=== PATIENT | female | born 1965 ===

== ENCOUNTER 2016-11-06 06:10 | Inpatient (IN) | payer OTHER ==
[2016-11-06 06:33] VITALS: BMI 37.6
[2016-11-06] MEDS ORDERED: Rocuronium 10 mg/ml (5 ml) ONE (07:29)
[2016-11-06] MEDS ORDERED: Succinylcholine 200 mg/10 ml Inj IV ONE (07:29)
[2016-11-06] MEDS ORDERED: Propofol 10 mg/ml Inj (20 ML) ONE (07:29)
[2016-11-06] MEDS ORDERED: Lidocaine 4% (Laryng-O-Jet) Kit MM ONE (07:29)
[2016-11-06] MEDS ORDERED: Midazolam 2 MG/2 ML VIAL ONE (07:29)
--- NOTE | 2016-11-06 07:30 | CP.SDSHP ---
Same Day Surgery H & P - History Proposed Procedure: Modified Radical Mastectomy (Right) Pre-Op Diagnosis: Infiltrating Ductal Ca - Previous Medical/Surgical History Pain: 0. No Pain Comments: Denies any Prior Medical or Surgical history Previous Surgical History: none - Allergies Allergies: Allergies No Known Allergies Allergy (Verified 09/07/16 12:09) - Physical Exam General Appearance: well nourished Vital Signs: Vital Signs 11/06/16 11/06/16 06:26 06:36 Temperature 97.9 F Pulse Rate 62 62 Respiratory 97 H Rate Blood Pressure 116/60 Mental Status: Alert & Oriented x3 Neuro: WNL Heart: WNL Lungs: WNL GI: WNL - {Optional Preform as Required} Breast: Other (R breast mass) Other Pertinent Findings: Core needle Bx with Infiltrating Ductal CA - Impression Impression: 51 yo F otherwise healthy with 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 Evaluated Today:Candidate for Anesthesia & Procedure: Yes - Date & Time Date: 11/06/16 Time: 07:30 Short Stay Discharge - Short Stay Discharge Admitting Diagnosis/Reason for Visit: C50.9 Disposition: HOME/ ROUTINE
[2016-11-06] MEDS ORDERED: Lactated Ringer's 1,000 ML IV ONE (07:45)
[2016-11-06] MEDS ORDERED: Dexamethasone 4 mg/1 ml ONE (08:07)
[2016-11-06] MEDS ORDERED: Neostigmine Methylsulfate 3mg/3ml Syringe IV ONE (08:45)
[2016-11-06] MEDS ORDERED: HYDROmorphone 0.5 mg/0.5 ml ISec IVP PRN (09:14)
--- NOTE | 2016-11-06 09:26 | PCM.SURG1 ---
Surgeon's Initial Post Op Note - Surgeon's Notes Surgeon: Dr. Barnett Parent Trainer: Dr. Butterfield, PGY2 Type of Anesthesia: General Endo Pre-Operative Diagnosis: Infiltrating Ductal Ca, Right Breast Operative Findings: same Post-Operative Diagnosis: same Operation Performed: Modified Radical Mastectomy, Right Breast Specimen/Specimens Removed: Right Breast Estimated Blood Loss: EBL {In ML}: 30 Blood Products Given: N/A Drains Used: Adithya Post-Op Condition: Good Date of Surgery/Procedure: 11/06/16 Time of Surgery/Procedure: 09:25
[2016-11-06] MEDS: HYDROmorphone 0.5 mg/0.5 ml ISec IVP PRN ×2 (09:55→10:10)
[2016-11-06] MEDS: Oxycodone/Acetaminophen 5/325 mg Tab PO PRN (14:49)
[2016-11-06] MEDS ORDERED: Lactated Ringer's 1,000 ML IV SCH (19:30)
[2016-11-07 01:10] VITALS: RESP 18
[2016-11-07] MEDS: Oxycodone/Acetaminophen 5/325 mg Tab PO PRN ×2 (03:07→14:41)
--- NOTE | 2016-11-07 07:41 | CP.PCM.DIS ---
Provider - Provider Date of Admission: 11/06/16 09:15 Attending physician: Tressa Barnett MD Primary care physician: Maxwell Franco MD Time Spent in preparation of Discharge (in minutes): 20 Diagnosis - Discharge Diagnosis (1) Breast cancer Status: Acute Hospital Course - Hospital Course Hospital Course: 51 yo F admitted to the hospital after undergoing Right Modified radical mastectomy for infiltrative ductal CA. Pt did well post-operatively. A CT chest/abdomen/pelvis and Bone scan were completed during her stay. On POD #1 Pt. was tolerating regular diet, ambulating, and pain was well controlled on PO medications. Pt was stable for discharge home with follow-up in office. Discharge Exam - Head Exam Head Exam: ATRAUMATIC, NORMAL INSPECTION, NORMOCEPHALIC - Eye Exam Eye Exam: EOMI, Normal appearance - Respiratory Exam Respiratory Exam: NORMAL BREATHING PATTERN. absent: Respiratory Distress - Cardiovascular Exam Cardiovascular Exam: REGULAR RHYTHM - GI/Abdominal Exam GI & Abdominal Exam: Soft. absent: Distended, Tenderness - Neurological Exam Neurological exam: Alert, Oriented x3 - Psychiatric Exam Psychiatric exam: Normal Affect, Normal Mood - Skin Skin Exam: Dry, Intact Additional comments: R breast with surgical dressing, C/D/I Adithya drain in place with serosanguinous drainage Discharge Plan - Discharge Medications Prescriptions: oxyCODONE/Acetaminophen [Percocet 5/325 mg Tab] 1 tab PO Q4 PRN #20 tab PRN Reason: Pain, Moderate (4-7) - Follow Up Plan Condition: GOOD Disposition: HOME/ ROUTINE Instructions: Mastectomy (DC), Surgical Site Infections (GEN), How To Wash Your Hands (GEN) Additional Instructions: F/U with Dr. Barnett in office in 1 week. Make an appt to see Dr. Marc to discuss results from today's imaging studies. You may remove dressing and shower tomorrow. If you wish to leave dressing in place do not allow it to get wet while washing. You may resume regular diet and activities. Take Percocet PRN for pain. Referrals: Maxwell Franco MD [Primary Care Provider] - Tressa Barnett MD [Staff Provider] -
[2016-11-07] MEDS ORDERED: Iohexol 300 100 ML IJ ONE (08:13)
[2016-11-07] MEDS ORDERED: Sodium Chloride 0.9% 50 ML IV ONE (08:13)
--- NOTE | 2016-11-07 10:42 | OP ---
PROCEDURE DATE: 11/06/2016 SURGEON: Dr. Barnett. SKILLS INSTRUCTOR: Dr. Butterfield. ANESTHESIA: General. PREOPERATIVE DIAGNOSIS: Infiltrating ductal carcinoma, right breast. POSTOPERATIVE DIAGNOSIS: Infiltrating ductal carcinoma, right breast. PROCEDURE: Right modified radical mastectomy. DESCRIPTION OF OPERATION: With the patient in the supine position under adequate general anesthesia, the right upper chest and upper arm and axilla were prepped and draped in the usual sterile manner. The patient was noted to have a 1 inch palpable mass just medial to the areolar area and an elliptic al incision was made surrounding the nipple areolar complex, as well as the mass. Superior and infer ior skin flaps were raised and the breast tissue was dissected off the chest wall, primarily using ca utery with care taken at the lower lateral aspect to preserve the serratus musculature. All bleeders were cauterized or clamped and ligated with 3-0 Vicryl ties. The breast was removed initially. No areas of fixation to the chest wall or the skin were identified. The axilla was then entered at the edge of the pectoralis major and the axillary contents were noted to be essentially fatty with minima l theresa tissue. All tissue was swept downward from the area of the axillary vein, preserving the rebecca g thoracic nerve and divided with Hemoclips. A single firm nodule which may have represented a node was palpable in the material adjacent to the chest wall, which was sent along with the remainder of t he axillary content. The operative site was examined for hemostasis and a #19 Adithya drain was positi oned beneath both the chest wall flaps and extending into the axilla, brought out through a lower sta b incision. The wound was irrigated with sterile water and closure was performed with radha. A dr y sterile dressing followed by a bulky compression dressing was applied. The patient tolerated the p rocedure well and transferred to recovery room in stable condition. Estimated blood loss for the pro cedure was 50 mL. Tressa Barnett MD cc: 58 TT: 11/07/2016 10:42:09 estela
[2016-11-07 13:47] VITALS: O2SAT 98
[2016-11-07 13:49] VITALS: BP 111/68; PULSE 72; TEMP 98.8
--- NOTE | 2016-11-07 15:06 | CT ---
PROCEDURE: CT Chest, Abdomen and Pelvis with intravenous contrast HISTORY: Breast Ca, r/o metastatic disease COMPARISON: None. TECHNIQUE: IV dose administered: 95 cc Omnipaque 300. Radiation dose: Total exam DLP = 1329.43 mGy-cm. This CT exam was performed using one or more of the following dose reduction techniques: Automated exposure control, adjustment of the mA and/or kV according to patient size, and/or use of iterative reconstruction technique. FINDINGS: CT CHEST WITH CONTRAST: LUNGS: Subsegmental dependent/basilar atelectasis. . No nodule, mass or consolidation. MEDIASTINUM: Unremarkable. Normal caliber aorta and pulmonary arterial trunk. No aortic dissection. Normal size heart. LYMPH NODES: Unremarkable. PLEURA: Unremarkable. No pneumothorax. No pleural fluid. BONES: Unremarkable. OTHER FINDINGS: Postoperative findings right chest/right breast including surgical drains in good position. CT ABDOMEN AND PELVIS: LIVER: Hepatic steatosis. No focal masses. No intrahepatic bile duct dilatation or perihepatic ascites. GALLBLADDER AND BILE DUCTS: Unremarkable. PANCREAS: Unremarkable. No gross lesion or ductal dilatation. SPLEEN: Unremarkable. ADRENALS: Unremarkable. No mass. KIDNEYS AND URETERS: Unremarkable. No hydronephrosis. No solid mass. VASCULATURE: Unremarkable. No aortic aneurysm. BOWEL: Unremarkable. No obstruction. No gross mural thickening. APPENDIX: Normal appendix. PERITONEUM: Unremarkable. No free fluid. No free air. LYMPH NODES: Unremarkable. No enlarged lymph nodes. BLADDER: Unremarkable. REPRODUCTIVE: Unremarkable. BONES: No acute fracture. OTHER FINDINGS: None. IMPRESSION: No significant or acute findings to account for/ related to the clinical presentation. Postoperative changes right anterior chest wall. No suspicious findings in the thorax, abdomen, retroperitoneum or pelvis.
--- NOTE | 2016-11-07 15:16 | NM ---
PROCEDURE: Bone scan HISTORY: Breast Ca, r/o metastatic disease COMPARISON: None TECHNIQUE: 26.6 mCi technetium 99 M MDP administered intravenously. FINDINGS: Negative study for osseous metastatic disease. Degenerative changes both knees and ankles. Similar less pronounced changes lumbar spine. IMPRESSION: Negative study for osseous metastatic disease.
== END 2016-11-07 17:00 | disposition home or self-care (01) | DRG 258 ==
LOC: H.OPSURG 06:10 → H.PEDS 06:10
PROVIDERS: ADMIT Specialist; ATTEND Specialist
PROC: 0HTT0ZZ Resection of Right Breast, Open Approach (ICD-10-PCS; principal; 2016-11-06 07:45)
DX: C50.011 Malignant neoplasm of nipple and areola, right female breast (principal)

== ENCOUNTER 2017-05-07 06:15 | Day surgery (SDC) | payer SELFPAY ==
[2017-05-03 13:32] VITALS: RESP 18
[2017-05-07] MEDS ORDERED: Propofol 10 mg/ml Inj (20 ML) ONE (07:32)
[2017-05-07] MEDS ORDERED: Midazolam 2 MG/2 ML VIAL ONE (07:32)
[2017-05-07] MEDS ORDERED: Lidocaine Hydrochloride 5 ML INJ ONE (07:33)
[2017-05-07] MEDS ORDERED: Lidocaine 1% Inj (20ml) ONE (07:44)
[2017-05-07] MEDS ORDERED: Lactated Ringer's 500 ML IV ONE ×3 (07:45→09:45)
[2017-05-07] MEDS ORDERED: Lidocaine 1% Inj (20ml) IJ ONE (08:15)
[2017-05-07] MEDS ORDERED: Oxycodone/Acetaminophen 5/325 mg Tab PO PRN (08:59)
--- NOTE | 2017-05-07 09:04 | PCM.SURG1 ---
Surgeon's Initial Post Op Note - Surgeon's Notes Surgeon: Dr. Barnett Computer Methods Analyst: Jaja Nino, PGY2 Pre-Operative Diagnosis: Breast cancer Operative Findings: normal anatomy Post-Operative Diagnosis: same Operation Performed: insertion of portacath in right subclavian vein Specimen/Specimens Removed: none Estimated Blood Loss: EBL {In ML}: 5 Blood Products Given: N/A Drains Used: No Drains Post-Op Condition: Good Date of Surgery/Procedure: 05/07/17 Time of Surgery/Procedure: 08:00
[2017-05-07] MEDS ORDERED: Lactated Ringer's 1,000 ML IV SCH (09:15)
[2017-05-07] MEDS ORDERED: HYDROmorphone 0.5 mg/0.5 ml ISec IVP PRN (09:44)
[2017-05-07] MEDS ORDERED: HYDROmorphone 0.5 mg/0.5 ml ISec ONE (09:46)
--- NOTE | 2017-05-07 10:57 | RAD ---
PROCEDURE: CHEST RADIOGRAPH, 1 VIEW HISTORY: s/p portacath insertion COMPARISON: None available. FINDINGS: The right Port-A-Cath terminates at the cavoatrial junction. LUNGS: There are low lung volumes which may be related to poor inspiratory effort. There is left lower lobe airspace disease PLEURA: There is fluid in the minor fissure. Also noted is small left pleural effusion. No pneumothorax or no large right pleural fluid seen. CARDIOVASCULAR: There is mild cardiomegaly. OSSEOUS STRUCTURES: No significant abnormalities. VISUALIZED UPPER ABDOMEN: Normal. OTHER FINDINGS: None. IMPRESSION: Port-A-Cath terminates at the cavoatrial junction. Left lower lobe atelectasis/ pneumonia and small left pleural effusion. Follow-up to resolution is advised.
[2017-05-07 12:21] VITALS: BP 100/50; PULSE 66; TEMP 98.5
[2017-05-07 13:24] VITALS: O2SAT 98
--- NOTE | 2017-05-07 14:36 | RAD ---
PROCEDURE: Fluoroscopy up to 1 hr. HISTORY: PORT A CATH INSERTION COMPARISON: None TECHNIQUE: Standard protocol for this study/examination. FINDINGS: Total fluoroscopic time (continuous mode) utilized during the procedure: 39.9 seconds. Submitted images from the current procedure: 4.0 IMPRESSION: Less than 1 hr fluoroscopic time utilized during performance of the procedure.
--- NOTE | 2017-05-09 10:48 | CP.SDSHP ---
Same Day Surgery H & P - Allergies Allergies: Allergies No Known Allergies Allergy (Verified 09/07/16 12:09) Short Stay Discharge - Short Stay Discharge Admitting Diagnosis/Reason for Visit: C50.919 Disposition: HOME/ ROUTINE Referrals: Shiloh Pollard MD [Primary Care Provider] - Progress Note/Discharge Note with Instructions: Dressing dry and intact. CXR with no pneumothorax.
--- NOTE | 2017-05-10 01:43 | OP ---
PROCEDURE DATE: 05/07/2017 PREOPERATIVE DIAGNOSIS: Breast cancer. POSTOPERATIVE DIAGNOSIS: Breast cancer. PROCEDURE: Right subclavian Port-A-Cath insertion. SURGEON: Dr. Tressa Barnett. DIESEL POWERPLANT MECHANIC HELPER: Dr. Nino TYPE OF ANESTHESIA: Local with IV sedation. ANESTHESIA ADMINISTERED BY: Dr. Nolasco DESCRIPTION OF PROCEDURE: With the patient in the supine position having received IV sedation, the right upper chest and lower neck were prepped and draped in the usual sterile manner. The patient is status post a well-healed right mastectomy; 1% lidocaine was infiltrated and a right subclavian vein puncture was performed. A guidewire was passed and the position was checked with C-arm. Additional 1% lidocaine was infiltrated over the right pectoral area and a subcutaneous pocket was created large enough to accommodate the port and the 6-Mauritanian catheter was then tunneled from the port site to the insertion site. The vein dilator and introducer were passed over the guidewire and positioned in the superior vena cava. The guidewire and dilator were removed and the catheter was passed via the introducer and positioned in the lower portion of the superior vena cava. The catheter was aspirated for blood return and flushed with heparinized saline and the catheter was then trimmed at 20 cm from the tip and fixed to the port of a titanium 6-Mauritanian power port, Port-A-Cath reservoir. The catheter was fixed with the appropriate fixation device. The reservoir was also aspirated for blood return and then flushed with heparinized saline. The reservoir was positioned in the previously created subcutaneous pocket and sutured to the underlying fascia with a 3-0 Prolene suture. The entire catheter system was again reviewed with C-arm and position was noted to be appropriate and the pocket was closed with running subcuticular suture of 4-0 Monocryl and Steri-Strips. Dry sterile dressing was applied. The patient tolerated the procedure well and transferred to recovery room in stable condition. Estimated blood loss for the procedure was 5 mL. Tressa Barnett MD
== END 2017-05-07 13:26 | disposition home or self-care (01) ==
LOC: H.OPSURG 06:15
PROVIDERS: ATTEND Specialist
DX: C50.919 Malignant neoplasm of unspecified site of unspecified female breast (principal)
CPT/HCPCS: 36561; 71010; C1751; J0690; J1170; J1644; J2250; J2704; J3010; J7040; J7120

== ENCOUNTER 2017-09-10 10:53 | Emergency (ER) | payer OTHER ==
[2017-09-10 10:53] VITALS: BMI 37.6
[2017-09-10 11:29] VITALS: BP 115/55; PULSE 83; RESP 20; TEMP 97.9; O2SAT 98
--- NOTE | 2017-09-10 12:48 | ED PDOC ---
HPI: CCC, URI, Sore Throat Time Seen by Provider: 09/10/17 12:22 Chief Complaint (Nursing): ENT Problem Chief Complaint (Provider): ENT problem History Per: Patient History/Exam Limitations: no limitations Onset/Duration Of Symptoms: Days (x1) Current Symptoms Are (Timing): Still Present Associated Symptoms: Sore Throat. denies: Fever, Cough, Vomiting, Diarrhea, Other (SOB) Ear Symptoms: Bilateral: None Additional Complaint(s): Em Dumas is a 52 year old female, with a past medical history of breast CA, who presents to the emergency department complaining of throat discomfort and swelling onset for x2 days. She denies taking any new medications. Patient states she has been having difficulty eating due to throat discomfort. Patient denies any fever, cough, vomiting, diarrhea or shortness of breath. No further medical complaints. PMD: None provided. Past Medical History Reviewed: Historical Data, Nursing Documentation, Vital Signs Vital Signs: Last Vital Signs Temp 97.9 F 09/10/17 11:28 Pulse 83 09/10/17 11:28 Resp 20 09/10/17 11:28 BP 115/55 L 09/10/17 11:28 Pulse Ox 98 09/10/17 13:08 - Medical History PMH: Arthritis Denies: Chronic Kidney Disease Other PMH: Breast CA - Surgical History Surgical History: No Surg Hx - Family History Family History: States: Unknown Family Hx - Social History Current smoker - smoking cessation education provided: No Alcohol: None Drugs: Denies - Home Medications Home Medications: Ambulatory Orders Medication Instructions Recorded Calcium Carbonate/Vitamin D3 1 each PO DAILY 05/10/17 [Calcium 500 + Vit D Caplet] Amoxicillin/Potassium Clav 1 each PO TID #30 tablet 09/10/17 [Augmentin 500-125 Tablet] predniSONE [predniSONE Tab] 40 mg PO DAILY #8 tab 09/10/17 - Allergies Allergies/Adverse Reactions: Allergies Allergy/AdvReac Type Severity Reaction Status Date / Time No Known Allergies Allergy Verified 09/07/16 12:09 Review of Systems ROS Statement: Except As Marked, All Systems Reviewed And Found Negative Constitutional: Negative for: Fever ENT: Positive for: Throat Pain, Throat Swelling Respiratory: Negative for: Cough, Shortness of Breath Gastrointestinal: Negative for: Vomiting, Diarrhea Physical Exam - Reviewed Nursing Documentation Reviewed: Yes Vital Signs Reviewed: Yes - Physical Exam Appears: Positive for: Non-toxic, No Acute Distress Head Exam: Positive for: ATRAUMATIC, NORMAL INSPECTION, NORMOCEPHALIC Skin: Positive for: Normal Color, Warm, Dry Eye Exam: Positive for: Normal appearance, EOMI, PERRL ENT: Positive for: Other (Edema to uvula) Neck: Positive for: Painless ROM, Supple Cardiovascular/Chest: Positive for: Regular Rate, Rhythm. Negative for: Murmur Respiratory: Negative for: Respiratory Distress Gastrointestinal/Abdominal: Positive for: Normal Exam, Soft. Negative for: Tenderness Extremity: Positive for: Normal ROM. Negative for: Deformity, Swelling Neurologic/Psych: Positive for: Alert, Oriented - Laboratory Results Result Diagrams: 09/10/17 13:20 09/10/17 13:20 - ECG O2 Sat by Pulse Oximetry: 98 (RA) Pulse Ox Interpretation: Normal Medical Decision Making Medical Decision Making: Initial Impression: Initial Plan: --Comp Metabolic Panel --CBC w/ differential --Rocephin 1gm Sodium Chloride 0.9% 100 ml IVPB --Benadryl 25 mg IVP --Pecid 20 mg IVP --methylprednisolone 125 mg IM --reevaluation Labs reviewed. On reevaluation, patient is lying in bed comfortably in no acute distress, patient reports no SOB, able to swallow her saliva, speaking in full sentences. Dx of uvulitis d/w the patient. Advised to follow up with primary care physician or the clinic in 1-2 days without fail. Advised to take medication as prescribed. Return to the emergency room at any time for any new or worsening symptoms. Patient states she fully agrees with and understands discharge instructions. States that she agrees with the plan and disposition. Verbalized and repeated discharge instructions and plan. I have given the patient opportunity to ask any additional questions. ~ Scribe Attestation: Documented by Alexis Duran, acting as a scribe for Kirstin Mancuso PA-C. Provider Scribe Attestation: All medical record entries made by the Scribe were at my direction and personally dictated by me. I have reviewed the chart and agree that the record accurately reflects my personal performance of the history, physical exam, medical decision making, and the department course for this patient. I have also personally directed, reviewed, and agree with the discharge instructions and disposition. Disposition - Clinical Impression Clinical Impression: Uvulitis - Patient ED Disposition Is Patient to be Admitted: No Counseled Patient/Family Regarding: Studies Performed, Diagnosis, Need For Followup, Rx Given - Disposition Referrals: [facility] [Outside] Disposition Time: 14:00 Condition: STABLE Additional Instructions: Thank you for letting us take care of you today. You were treated for uvulitis. The emergency medical care you received today was directed at your acute symptoms. If you were prescribed any medication, please fill it and take as directed. It may take several days for your symptoms to resolve. Return to the Emergency Department if your symptoms worsen, do not improve, or if you have any other problems. Please contact your doctor in 2 days for re-evaluation and follow up / or call one of the physicians/clinics you have been referred to that are listed on the Patient Visit Information form that is included in your discharge packet. Bring any paperwork you were given at discharge with you along with any medications you are taking to your follow up visit. Our treatment cannot replace ongoing medical care by a primary care provider (PCP) outside of the emergency department. Thank you for allowing the [facility] team to be part of your care today. Prescriptions: Amoxicillin/Potassium Clav [Augmentin 500-125 Tablet] 1 each PO TID #30 tablet predniSONE [predniSONE Tab] 40 mg PO DAILY #8 tab Instructions: Uvulitis (ED) Forms: [employer] ([place]), [facility] ED School/Work Excuse Print Language: URUGUAYAN - PA / BOX OFFICE CLERK / Resident Statement / has reviewed & agrees with the documentation as recorded.
[2017-09-10] MEDS ORDERED: MethylPREDNISolone 40 mg Vial IM STA (12:49)
[2017-09-10] MEDS ORDERED: DiphenhydrAMINE 50 mg/ml Inj IVP STA (12:49)
[2017-09-10 13:30] LABS: BASO % 0.6 % (0.0-2.0); EOS % 1.5 % (0.0-4.0); HEMOGLOBIN 10.4 g/dL (12.0-16.0); LYMPH # 0.5 K/uL (1.0-4.3); LYMPH % 22.9 % (20.0-40.0); MEAN CELL VOLUME 97.9 fl (81.0-99.0); MEAN CORPUSCULAR HEMOGLOBIN 32.4 pg (27.0-31.0); MEAN CORPUSCULAR HGB CONC 33.1 g/dL (33.0-37.0); MEAN PLATELET VOLUME 9.1 fl (7.2-11.7); MONO # 0.1 K/uL (0.0-0.8); MONO % 3.5 % (0.0-10.0); NEUT # 1.5 K/uL (1.8-7.0); NEUT % 71.5 % (50.0-75.0); NRBC % 0.1 % (0.0-0.0); RBC 3.22 Mil/uL (3.80-5.20); RED CELL DISTRIBUTION WIDTH 16.6 % (11.5-14.5); WHITE BLOOD COUNT 2.1 K/uL (4.8-10.8)
[2017-09-10] MEDS ORDERED: cefTRIAXone (Rocephin) 1 gm Inj ONE (13:34)
[2017-09-10] MEDS ORDERED: DiphenhydrAMINE 50 mg/ml Inj ONE (13:35)
[2017-09-10 13:38] LABS: ALB/GLOB RATIO 1.2 (1.0-2.1); ALBUMIN 3.9 g/dL (3.5-5.0); ALT/SGPT 57 U/L (9-52); AST/SGOT 42 U/L (14-36); BLOOD UREA NITROGEN 13 mg/dl (7-17); CALCIUM 9.2 mg/dL (8.4-10.2); GFR AFRICAN-AMERICAN > 60; GFR NON-AFRICAN AMERICAN > 60
== END 2017-09-10 14:59 | disposition home or self-care (01) ==
LOC: H.ER 10:53
DX: K12.2 Cellulitis and abscess of mouth (principal); Z85.3 Personal history of malignant neoplasm of breast
CPT/HCPCS: 80053; 85025; 96372; 96374; 96375; 99283; J0696; J1200; J2920